=== PATIENT | male | born 1960 | race Caucasian/White ===

== ENCOUNTER 2019-12-04 11:54 | Emergency (ER) | payer OTHER ==
[2019-12-04] MEDS ORDERED: EPINEPHrine 1 MG/10 ML SYR IV ONE (11:55)
[2019-12-04] MEDS ORDERED: NA CHLORIDE 0.9% 1,000 ML IV ONE (11:55)
--- OUTSIDE RECORDS SUMMARY | 2019-12-04 12:38 | XMS REPORT | Continuity of Care Document ---
:1960 Author Organization [facility] t Address [address] [place] [address] Care Team Providers Name Role Phone Girish DAVIS S Attending Clinician Problems This patient has no known problems. Allergies, Adverse Reactions, Alerts This patient has no known allergies or adverse reactions. Medications This patient has no known medications. Procedures This patient has no known procedures. Encounters Start End Encounter Admission Attending Care Care Encounter Source Date/Time Date/Time Type Type Clinicians Facility Department ID 2019-10-13 2019-10-13 Emergency [facility] [id number] 06:52:13 07:58:00 Franck Neri [id number] [place] [id number] [place] [id number] Results This patient has no known results.
--- NOTE | 2019-12-04 14:23 | EDPHYS ---
Physician Documentation [facility] Name: Kenny Odonenll Age: 59 yrs Sex: Male : 1960 Arrival Date: 12/04/2019 Time: 11:56 Bed 4 Private MD: ED Physician Horacio Orr HPI: 12/03 14:15 This 59 yrs old Male presents to ER via EMS with complaints of CPR. kdr 14:15 Preceding the arrest, the patient collapsed. The arrest occurred at work. Pre-hospital kdr course: The arrest was witnessed Bystanders at the scene did not perform CPR. EMS care prior to arrival: initiation of ACLS, peripheral IV, oxygen, backboard, EMS on scene time was 30 minutes were spent at scene. 15 minutes elapsed prior to ACLS. ACLS has been in progress for 35 minutes. ACLS details: Initial rhythm was asystole. The presenting rhythm is asystole. Airway: LMA, Medications given by EMS prior to arrival - See nursing notes for pre-hospital details. The patient has not experienced similar symptoms in the past. It is unknown whether or not the patient has recently seen a physician, Sister reports that he had been scheduled to get evaluated at [facility] for some "clotting" issue. Historical: - Allergies: 12:22 Unable to obtain; iw - Home Meds: 12:22 Unable to obtain [Active]; iw - PMHx: 12:22 Unable to obtain; iw - PSHx: 12:22 Unable to obtain; iw - Immunization history:: Adult Immunizations unknown. - Social history:: Smoking status: unknown. ROS: 14:15 Unable to obtain ROS due to comatose state. kdr 16:14 Constitutional: Unable to obtain kdr Exam: 14:15 Constitutional: This is a well developed, well nourished patient who is awake, alert, kdr and in no acute distress. Head/Face: Normocephalic, atraumatic. 14:15 ENT: Hang airway in place. 14:15 Cardiovascular: Rate: 0, Rhythm: asystole, Pulses: not palpable, Edema: is not appreciated. MDM: 14:15 Data reviewed: vital signs, nurses notes. Counseling: I had a detailed discussion with kdr the patient and/or guardian regarding:. 14:22 Patient medically screened. kdr Administered Medications: 11:56 Drug: EPINEPHrine 0.1mg/mL 1:10,000 1 mg {Note: right tibia.} Route: IVP; Site: Other; iw 12:05 Follow up: Response: Cardiac rhythm is unchanged iw 12:00 Drug: EPINEPHrine 0.1mg/mL 1:10,000 1 mg {Note: right tibia.} Route: IVP; Site: Other; iw 12:05 Follow up: Response: Cardiac rhythm is unchanged iw Disposition: 14:22 . kdr Disposition: Patient pronounced on 12/04/19 12:05 by Horacio Orr. Impression: Cardiac arrest. 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 Signatures: Horacio Orr MD MD kdr Jessica Garza RN RN iw Corrections: (The following items were deleted from the chart) 14:38 14:22 12/04/2019 14:22 Patient pronounced on 12/04/2019 at 12:05 by Horacio Orr. iw Impression: Cardiac arrest. Released to Orthotic Finish Grinding Technician. kdr
--- NOTE | 2019-12-04 14:23 | ER ---
Nurse's Notes [facility] Name: Kenny Odonnell Age: 59 yrs Sex: Male : 1960 Arrival Date: 12/04/2019 Time: 11:56 Bed 4 Private MD: Diagnosis: Cardiac arrest Presentation: 12/03 11:52 Chief complaint: EMS states: pt c/o feeling tired while working outside, collapsed, CPR iw was started by EMS at approx 1120, fine Vfib on monitor, ACLS initiated by EMS, gave 4 rounds of epi, 1 gm calcium, 80 of bicarb. 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 11:52 Acuity: KRISTAL 1 iw 11:52 Compressions began prior to arrival. iw 11:52 Care prior to arrival: Medication(s) given: EpiX4, calcium 1 gm, bicarb 80 IV iw initiated. right tibia I/O Glucose check: 170 Oxygen administered. via AMBU bag. 12:05 Ebola Screen: Patient negative for fever greater than or equal to 101.5 degrees iw Fahrenheit, and additional compatible Ebola Virus Disease symptoms Patient denies exposure to infectious person. Patient denies travel to an Ebola-affected area in the 21 days before illness onset. No symptoms or risks identified at this time. Initial Sepsis Screen: Does the patient meet any 2 criteria? No. Patient's initial sepsis screen is negative. Does the patient have a suspected source of infection? No. Patient's initial sepsis screen is negative. Risk Assessment: Do you want to hurt yourself or someone else? Unable to obtain. Onset of symptoms was December 04, 2019. 12:09 Method Of Arrival: EMS: [facility] iw 12:20 Coronavirus screen: At this time, the client does not indicate any symptoms associated iw with coronavirus-19. Historical: - Allergies: 12:22 Unable to obtain; iw - Home Meds: 12:22 Unable to obtain [Active]; iw - PMHx: 12:22 Unable to obtain; iw - PSHx: 12:22 Unable to obtain; iw - Immunization history:: Adult Immunizations unknown. - Social history:: Smoking status: unknown. Assessment: 11:52 CPR assessment: unresponsive, intubated, Ambu ventilation, pulses present w/ iw compressions. 11:56 CPR assessment: unresponsive, intubated, Ambu ventilation, cyanotic, pulses present w/ iw compressions. Cardiac rhythm is asystole. 11:59 CPR assessment: unresponsive, intubated, Ambu ventilation, cyanotic, pulses present w/ iw compressions. Cardiac rhythm is asystole. 12:01 CPR assessment: unresponsive, intubated, Ambu ventilation, cyanotic. Cardiac rhythm is iw asystole. 12:02 CPR assessment: agonal respirations. Cardiac rhythm is pt noted to have agonal iw respirations, attempt to pace, pt has no palpable pulse with pacing. 12:05 CPR assessment: unresponsive, Ambu ventilation, cyanotic. Cardiac rhythm is asystole. iw 13:12 Reassessment: step-sister notified of pt's , is trying to get a hold of pt son and iw brother. 13:51 Reassessment: Judge Newman at bedside. hb 14:29 Reassessment: pt belongings given to pt brother, Subhash Mooney . iw ED Course: 11:56 Patient arrived in ED. iw 12:06 Jessica Garza RN is Primary Nurse. iw 12:09 Horacio Orr MD is Attending Physician. 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 eb 12:12 Triage completed. iw 13:52 patient's wallet placed in a property bag #[id number] and given to security/ wallet lisa eb in the amount of 510.00 dollars/ twenty five 20 dollar bills and one 10 dollar bill/ one social security card/ eight credit cards/ one medical insurance card/ one hack driver's license, one [employer] card, one benefits card/ wallet counted by Steph [facility] and witnessed by CYNTHIA Lopez and myself. 14:22 Horacio Orr MD is Pronouncing Provider. kdr Administered Medications: 11:56 Drug: EPINEPHrine 0.1mg/mL 1:10,000 1 mg {Note: right tibia.} Route: IVP; Site: Other; iw 12:05 Follow up: Response: Cardiac rhythm is unchanged iw 12:00 Drug: EPINEPHrine 0.1mg/mL 1:10,000 1 mg {Note: right tibia.} Route: IVP; Site: Other; iw 12:05 Follow up: Response: Cardiac rhythm is unchanged iw Outcome: 12:05 Outcome Patient iw 12:05 Condition: iw 12:22 Patient : Time of 12:05 Pronounced by Horacio Orr MD iw 14:38 Patient : Body released to [place] iw 14:38 Patient left the ED. iw Signatures: Horacio Orr MD MD [facility] Jessica Garza RN RN Marli Krishna RN CHRIS Mishel Story Corrections: (The following items were deleted from the chart) 12: 12:09 Chief complaint: EMS states: pt c/o feeling tired while working outside, iw collapsed, CPR was started by EMS at approx 1120, fine Vfib on monitor, ACLS initiated by EMS, gave 4 rounds of epi, 1 gm calcium, 80 of bicarb. 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 iw iw
== END 2019-12-04 14:38 ==
LOC: ER 11:54
DX: I46.9 Cardiac arrest, cause unspecified (principal)
CPT/HCPCS: 92950; 96374; 99285; J0171; J7030